=== PATIENT | female | born 1995 | race Caucasian/White ===

== ENCOUNTER 2018-08-19 13:55 | Emergency (ER) | payer MEDICAID ==
[~2018-08-19] VITALS: Ht 154.9 cm; Wt 86.4 kg
[2018-08-19 13:57] VITALS: TEMP 98.5
[2018-08-19] MEDS ORDERED: PRENATAL MVI PO (13:59)
[2018-08-19] MEDS ORDERED: OMEGA-3 1000 MG1 CAP PO (13:59)
[2018-08-19 14:28] LABS: COLLECTION METHOD CLEAN CATCH
[2018-08-19 14:33] LABS: PH 6 (5-8); SQUAMOUS EPITHELIAL 0-2 /hpf; URINE APPEARANCE Clear; URINE BACTERIA None Seen /hpf; URINE BILIRUBIN Negative (NEGATIVE); URINE BLOOD Negative (NEGATIVE); URINE COLOR Yellow; URINE GLUCOSE Negative (NEGATIVE); URINE KETONE Negative (NEGATIVE); URINE LEUKOCYTE ESTERASE Negative (NEGATIVE); URINE NITRATE Negative (NEGATIVE); URINE PROTEIN(semi-quant) Negative (NEGATIVE); URINE RBC 0-2 /hpf; URINE UROBILINOGEN Negative (NEGATIVE)
[2018-08-19 14:41] LABS: BASO % 0.2 % (0.0-2.0); EOS # 0.1 (0.0-0.7); EOS % 0.9 % (0-4.0); GRAN # 7.5 (1.4-6.5); GRAN % 72.2 % (42.2-75.2); HEMATOCRIT 37.9 % (37.0-47.0); HEMOGLOBIN 12.5 g/dl (12.5-16.0); LYMPH % 19.2 % (20.0-51.0); MEAN CELL VOLUME 90 fl (80.0-100.0); MEAN CORPUSCULAR HEMOGLOBIN 30 pg (27.0-31.0); MEAN CORPUSCULAR HGB CONC 33 g/dl (33.0-37.0); MEAN PLATELET VOLUME 10.2 fl (7.4-10.4); MONO # 0.7 (0.1-0.6); MONO % 7.1 % (1.7-9.3); PLATELET COUNT 278 K/mm3 (130-400); RED BLOOD COUNT 4.23 M/mm3 (4.10-5.30); REDCELL DISTRIBUTION WIDTH-CV 13.4 % (11.5-14.5)
[2018-08-19 14:53] LABS: ALBUMIN 3.7 gm/dL (3.5-5.0); BILIRUBIN,TOTAL 0.2 mg/dL (0.0-1.0); CALCIUM 9.8 mg/dL (8.4-10.2); CREATININE, serum 1.13 mg/dL (0.52-1.25); POTASSIUM 3.9 mmol/L (3.4-5.0); TOTAL PROTEIN 7.2 gm/dL (6.4-8.2)
[2018-08-19 16:40] VITALS: BP 119/74; PULSE 93
== END 2018-08-19 16:40 | disposition home or self-care (01) ==
LOC: COL.ER 13:55
PROVIDERS: Physician Assistant
DX: O26.892 Other specified pregnancy related conditions, second trimester (principal); R10.2 Pelvic and perineal pain; Z3A.17 17 weeks gestation of pregnancy; Z87.891 Personal history of nicotine dependence

== ENCOUNTER 2018-09-20 13:30 | Emergency (ER) | payer MEDICAID ==
[~2018-09-20] VITALS: Ht 154.9 cm; Wt 87.3 kg
[~2018-09-20 13:30] MED LIST: OMEGA-3 1000 MG1 CAP PO; PRENATAL MVI PO
[2018-09-20 13:33] VITALS: TEMP 98.4
[2018-09-20 14:16] LABS: BASO % 0.2 % (0.0-2.0); EOS # 0.1 (0.0-0.7); EOS % 0.9 % (0-4.0); GRAN # 7.5 (1.4-6.5); GRAN % 75.7 % (42.2-75.2); HEMATOCRIT 37.5 % (37.0-47.0); HEMOGLOBIN 12.3 g/dl (12.5-16.0); LYMPH # 1.7 (1.2-3.4); LYMPH % 16.7 % (20.0-51.0); MEAN CELL VOLUME 90 fl (80.0-100.0); MEAN CORPUSCULAR HEMOGLOBIN 29 pg (27.0-31.0); MEAN CORPUSCULAR HGB CONC 33 g/dl (33.0-37.0); MEAN PLATELET VOLUME 10.3 fl (7.4-10.4); MONO # 0.6 (0.1-0.6); PLATELET COUNT 264 K/mm3 (130-400); RED BLOOD COUNT 4.18 M/mm3 (4.10-5.30); REDCELL DISTRIBUTION WIDTH-CV 13.6 % (11.5-14.5)
[2018-09-20 14:20] LABS: ALANINE AMINOTRANSFERASE < 6 U/L (9-52); ALBUMIN 3.7 gm/dL (3.5-5.0); ALKALINE PHOSPHATASE 62 U/L (50-136); ANION GAP 8 mmol/L (7-16); AST,SGOT 15 U/L (15-37); BILIRUBIN,TOTAL 0.1 mg/dL (0.0-1.0); BLOOD UREA NITROGEN 5 mg/dL (7-17); CALCIUM 9.4 mg/dL (8.4-10.2); CARBON DIOXIDE 21 mmol/L (22-30); CHLORIDE 107 mmol/L (98-107); CREATININE, serum 0.44 (0.52-1.25); GLUCOSE 126 mg/dL (74-106); POTASSIUM 3.6 mmol/L (3.4-5.0); SODIUM 136 mmol/L (137-145); TOTAL PROTEIN 7.4 gm/dL (6.4-8.2)
[2018-09-20 14:31] LABS: TROPONIN-I < 0.012 ng/mL (0.000-0.035)
[2018-09-20 14:43] LABS: COLLECTION METHOD CLEAN CATCH
[2018-09-20 14:53] LABS: MUCOUS Present /lpf; PH 7 (5-8); URINE APPEARANCE Clear; URINE BACTERIA Rare /hpf; URINE BILIRUBIN Negative (NEGATIVE); URINE BLOOD Negative (NEGATIVE); URINE COLOR Yellow; URINE GLUCOSE Negative (NEGATIVE); URINE KETONE Negative (NEGATIVE); URINE LEUKOCYTE ESTERASE Negative (NEGATIVE); URINE NITRATE Negative (NEGATIVE); URINE PROTEIN(semi-quant) Negative (NEGATIVE); URINE RBC 0-2 /hpf; URINE UROBILINOGEN Negative (NEGATIVE)
[2018-09-20] MEDS ORDERED: ZOFRAN ODT4 MG PO (15:12)
[2018-09-20 15:30] VITALS: BP 104/44; PULSE 81
== END 2018-09-20 15:32 | disposition home or self-care (01) ==
LOC: COL.ER 13:30
PROVIDERS: Physician Assistant
DX: R07.89 Other chest pain (principal); R10.9 Unspecified abdominal pain

== ENCOUNTER 2018-10-09 15:04 | Emergency (ER) | payer MEDICAID ==
[~2018-10-09] VITALS: Ht 154.9 cm; Wt 90.9 kg
[~2018-10-09 15:04] MED LIST changes: +ZOFRAN ODT4 MG PO
[2018-10-09 15:14] VITALS: BP 117/74; PULSE 120; TEMP 97.6
== END 2018-10-09 16:05 | disposition left against medical advice (07) ==
LOC: COL.ER 15:04
DX: O21.9 Vomiting of pregnancy, unspecified (principal)

== ENCOUNTER 2018-10-13 15:44 | Outpatient (CLI) | payer MEDICAID ==
[~2018-10-13] VITALS: Ht 157.5 cm; Wt 89.5 kg
--- NOTE | 2018-10-13 16:00 | NUR ---
Pt arrives on unit via wheelchair. Pt states falling down the stairs on the right side of the abdomen while she was doing laundry. Denies vaginal bleeding, LOF, and regular ctx. Unsure of movement. N/V present throughout . Pt states, "I throw up so much the blood vessels in my face break. I can't sleep at night because of my headaches. I worry something is wrong with me that they aren't finding and I feel like I'm dying." Pt has hx of falling as a child. Dr. Akers updated on pt admission. See physician notification. Changed into clean gown. EFM and toco applied. VSS. Admission assessment completed. Pt updated on POC. Call light within reach. Bed locked in low position. Pt tearful.
[2018-10-13 16:23] LABS: COLLECTION METHOD CLEAN CATCH
[2018-10-13 16:27] LABS: BASO % 0.2 % (0.0-2.0); EOS # 0.1 (0.0-0.7); EOS % 0.9 % (0-4.0); GRAN % 77.2 % (42.2-75.2); HEMOGLOBIN 12.3 g/dl (12.5-16.0); LYMPH # 1.6 (1.2-3.4); MEAN CELL VOLUME 89 fl (80.0-100.0); MEAN CORPUSCULAR HEMOGLOBIN 30 pg (27.0-31.0); MEAN CORPUSCULAR HGB CONC 33 g/dl (33.0-37.0); MEAN PLATELET VOLUME 9.8 fl (7.4-10.4); MONO # 0.8 (0.1-0.6); PLATELET COUNT 286 K/mm3 (130-400); RED BLOOD COUNT 4.17 M/mm3 (4.10-5.30); REDCELL DISTRIBUTION WIDTH-CV 13.9 % (11.5-14.5)
--- NOTE | 2018-10-13 16:35 | NUR ---
This RN at bedside. Pt tearful. Discussed with pt anxiety and not being able to sleep at night. Pt planning on meeting with Ingrid at [facility]. Pt states wanting to feele better and will make appointment.
[2018-10-13 16:39] LABS: MUCOUS Present /lpf; PH 6 (5-8); URINE APPEARANCE Hazy; URINE BACTERIA Rare /hpf; URINE BILIRUBIN Negative (NEGATIVE); URINE BLOOD Negative (NEGATIVE); URINE COLOR Yellow; URINE GLUCOSE Negative (NEGATIVE); URINE KETONE Negative (NEGATIVE); URINE LEUKOCYTE ESTERASE 1+ (NEGATIVE); URINE NITRATE Negative (NEGATIVE); URINE PROTEIN(semi-quant) 1+ (NEGATIVE); URINE RBC 0-2 /hpf; URINE UROBILINOGEN Negative (NEGATIVE)
[2018-10-13 16:44] LABS: TRICYCLIC ANTIDEPRESS URINE NEGATIVE
[2018-10-13 16:47] LABS: ALANINE AMINOTRANSFERASE < 6 U/L (9-52); ALBUMIN 3.8 gm/dL (3.5-5.0); ALKALINE PHOSPHATASE 72 U/L (50-136); ANION GAP 11 mmol/L (7-16); AST,SGOT 17 U/L (15-37); BILIRUBIN,TOTAL 0.2 mg/dL (0.0-1.0); BLOOD UREA NITROGEN 4 mg/dL (7-17); CALCIUM 9.5 mg/dL (8.4-10.2); CARBON DIOXIDE 22 mmol/L (22-30); CHLORIDE 106 mmol/L (98-107); CREATININE, serum 0.45 (0.52-1.25); GLUCOSE 108 mg/dL (74-106); POTASSIUM 3.7 mmol/L (3.4-5.0); SODIUM 139 mmol/L (137-145); TOTAL PROTEIN 7.7 gm/dL (6.4-8.2)
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
[2018-10-13 16:51] VITALS: BP 122/78; PULSE 114; TEMP 98.5
--- NOTE | 2018-10-13 17:30 | NUR ---
Myra from Crisis Center contacted this RN. Myra updated on pt hx. Discussed safety plan. Pt states feeling safe to stay with FOB mother. Safety plan includes staying with FOB mother and following up with advocate. Pt agrees to plan of care. Needs voucher for discharge. housekeeper supervisor notified. Will be up to unit with transportation voucher.
--- NOTE | 2018-10-13 17:55 | NUR ---
Discharge instruction given. This RN recommended contacting [facility] Monday. Pt verbalizes understanding and agrees to POC. No questions or concerns at this time. Leaves unit ambulatory with this RN. Travel voucher given. Waiting in ER for transportation.
== END 2018-10-13 18:00 | disposition home or self-care (01) ==
LOC: LDRO 15:44
PROVIDERS: Obstetrics & Gynecology
DX: O9A.212 Injury, poisoning and certain other consequences of external causes complicating pregnancy, second trimester (principal); Z3A.24 24 weeks gestation of pregnancy

== ENCOUNTER 2018-10-24 14:31 | Emergency (ER) | payer MEDICAID ==
[~2018-10-24] VITALS: Ht 154.9 cm; Wt 90.9 kg
[2018-10-24 14:39] VITALS: TEMP 98.5
[2018-10-24 15:16] LABS: BASO % 0.2 % (0.0-2.0); EOS # 0.1 (0.0-0.7); GRAN # 9.1 (1.4-6.5); GRAN % 76.2 % (42.2-75.2); HEMATOCRIT 37.9 % (37.0-47.0); HEMOGLOBIN 12.5 g/dl (12.5-16.0); LYMPH # 1.7 (1.2-3.4); LYMPH % 14.2 % (20.0-51.0); MEAN CELL VOLUME 89 fl (80.0-100.0); MEAN CORPUSCULAR HEMOGLOBIN 29 pg (27.0-31.0); MEAN CORPUSCULAR HGB CONC 33 g/dl (33.0-37.0); MEAN PLATELET VOLUME 10.2 fl (7.4-10.4); MONO # 0.9 (0.1-0.6); MONO % 7.8 % (1.7-9.3); PLATELET COUNT 303 K/mm3 (130-400); RED BLOOD COUNT 4.25 M/mm3 (4.10-5.30)
[2018-10-24] MEDS ORDERED: ZANTAC 150MG T150 MG PO (15:30)
[2018-10-24 15:31] LABS: ALANINE AMINOTRANSFERASE < 6 U/L (9-52); ALBUMIN 3.9 gm/dL (3.5-5.0); ALKALINE PHOSPHATASE 82 U/L (50-136); ANION GAP 14 mmol/L (7-16); AST,SGOT 15 U/L (15-37); BILIRUBIN,TOTAL 0.2 mg/dL (0.0-1.0); BLOOD UREA NITROGEN 7 mg/dL (7-17); C-REACTIVE PROTEIN 1.3 mg/dL (0.0-0.9); CALCIUM 10.1 mg/dL (8.4-10.2); CARBON DIOXIDE 20 mmol/L (22-30); CHLORIDE 105 mmol/L (98-107); CREATININE, serum 0.45 (0.52-1.25); GLUCOSE 96 mg/dL (74-106); LIPASE 77 U/L (23-300); POTASSIUM 3.8 mmol/L (3.4-5.0); SODIUM 139 mmol/L (137-145); TOTAL PROTEIN 7.9 gm/dL (6.4-8.2)
[2018-10-24] MEDS ORDERED: CARAFATE 1GM1 G PO (16:14)
[2018-10-24] MEDS ORDERED: ZOFRAN ODT4 MG PO (16:14)
[2018-10-24 16:34] VITALS: BP 118/77; PULSE 101
== END 2018-10-24 16:34 | disposition home or self-care (01) ==
LOC: COL.ER 14:31
PROVIDERS: Emergency Medicine
DX: O99.612 Diseases of the digestive system complicating pregnancy, second trimester (principal); K29.70 Gastritis, unspecified, without bleeding; K21.9 Gastro-esophageal reflux disease without esophagitis; Z3A.26 26 weeks gestation of pregnancy
CPT/HCPCS: J7030

== ENCOUNTER 2018-10-26 18:33 | Emergency (ER) | payer MEDICAID ==
[~2018-10-26] VITALS: Ht 154.9 cm; Wt 90.9 kg
[~2018-10-26 18:33] MED LIST changes: +CARAFATE 1GM1 G PO; +ZANTAC 150MG T150 MG PO
[2018-10-26 18:47] VITALS: TEMP 98.6
--- NOTE | 2018-10-26 18:50 | NUR ---
1850 20 MINUTE FM STRIP RAN ON PT WITH BASELINE HR OF 120'S WITH GOOD VARIABILITY AND ACCELS WITH MOVEMENT
[2018-10-26 20:16] VITALS: BP 110/71; PULSE 104
== END 2018-10-26 20:16 | disposition home or self-care (01) ==
LOC: COL.ER 18:33
DX: O26.893 Other specified pregnancy related conditions, third trimester (principal); R51 Headache; F41.9 Anxiety disorder, unspecified; Z3A.26 26 weeks gestation of pregnancy

== ENCOUNTER 2018-11-09 13:56 | Emergency (ER) | payer MEDICAID ==
[~2018-11-09] VITALS: Ht 154.9 cm; Wt 91.1 kg
[2018-11-09 14:14] VITALS: PULSE 113; TEMP 97.5
[2018-11-09 15:54] LABS: BASO % 0.2 % (0.0-2.0); EOS # 0.1 (0.0-0.7); GRAN # 6.8 (1.4-6.5); GRAN % 74.4 % (42.2-75.2); HEMOGLOBIN 11.3 g/dl (12.5-16.0); LYMPH # 1.5 (1.2-3.4); LYMPH % 15.9 % (20.0-51.0); MEAN CELL VOLUME 88 fl (80.0-100.0); MEAN CORPUSCULAR HEMOGLOBIN 29 pg (27.0-31.0); MEAN CORPUSCULAR HGB CONC 33 g/dl (33.0-37.0); MEAN PLATELET VOLUME 9.9 fl (7.4-10.4); MONO # 0.7 (0.1-0.6); MONO % 7.8 % (1.7-9.3); PLATELET COUNT 257 K/mm3 (130-400); RED BLOOD COUNT 3.84 M/mm3 (4.10-5.30); REDCELL DISTRIBUTION WIDTH-CV 14.2 % (11.5-14.5)
[2018-11-09 16:05] LABS: ALANINE AMINOTRANSFERASE < 6 U/L (9-52); ALBUMIN 3.4 gm/dL (3.5-5.0); ALKALINE PHOSPHATASE 77 U/L (50-136); ANION GAP 10 mmol/L (7-16); AST,SGOT 15 U/L (15-37); BILIRUBIN,TOTAL 0.2 mg/dL (0.0-1.0); BLOOD UREA NITROGEN 7 mg/dL (7-17); CALCIUM 9.3 mg/dL (8.4-10.2); CARBON DIOXIDE 20 mmol/L (22-30); CHLORIDE 107 mmol/L (98-107); CREATININE, serum 0.52 (0.52-1.25); GLUCOSE 110 mg/dL (74-106); POTASSIUM 3.5 mmol/L (3.4-5.0); SODIUM 137 mmol/L (137-145); TOTAL PROTEIN 7.2 gm/dL (6.4-8.2)
[2018-11-09 16:16] LABS: HEMATOCRIT 33.8 % (37.0-47.0)
[2018-11-09 16:57] VITALS: BP 97/52
== END 2018-11-09 16:57 | disposition home or self-care (01) ==
LOC: COL.ER 13:56
PROVIDERS: Emergency Medicine
DX: O26.893 Other specified pregnancy related conditions, third trimester (principal); R51 Headache; Z3A.28 28 weeks gestation of pregnancy; Z86.69 Personal history of other diseases of the nervous system and sense organs

== ENCOUNTER 2018-11-22 19:32 | Emergency (ER) | payer MEDICAID ==
[~2018-11-22] VITALS: Ht 154.9 cm; Wt 90.9 kg
[2018-11-22 19:33] VITALS: TEMP 98.4
[2018-11-22 20:14] LABS: ALANINE AMINOTRANSFERASE < 6 U/L (9-52); ALBUMIN 3.6 gm/dL (3.5-5.0); ALKALINE PHOSPHATASE 88 U/L (50-136); ANION GAP 12 mmol/L (7-16); AST,SGOT 15 U/L (15-37); BASO % 0.3 % (0.0-2.0); BILIRUBIN,TOTAL 0.2 mg/dL (0.0-1.0); BLOOD UREA NITROGEN 7 mg/dL (7-17); CALCIUM 9.8 mg/dL (8.4-10.2); CARBON DIOXIDE 20 mmol/L (22-30); CHLORIDE 105 mmol/L (98-107); CREATININE, serum 0.65 (0.52-1.25); EOS # 0.1 (0.0-0.7); EOS % 0.9 % (0-4.0); GLUCOSE 119 mg/dL (74-106); GRAN % 74.1 % (42.2-75.2); HEMOGLOBIN 11.8 g/dl (12.5-16.0); LYMPH % 16.4 % (20.0-51.0); MEAN CELL VOLUME 88 fl (80.0-100.0); MEAN CORPUSCULAR HEMOGLOBIN 29 pg (27.0-31.0); MEAN CORPUSCULAR HGB CONC 33 g/dl (33.0-37.0); MEAN PLATELET VOLUME 10.3 fl (7.4-10.4); MONO # 0.9 (0.1-0.6); MONO % 7.6 % (1.7-9.3); PLATELET COUNT 307 K/mm3 (130-400); POTASSIUM 3.8 mmol/L (3.4-5.0); RED BLOOD COUNT 4.08 M/mm3 (4.10-5.30); REDCELL DISTRIBUTION WIDTH-CV 14.4 % (11.5-14.5); SODIUM 137 mmol/L (137-145); TOTAL PROTEIN 7.5 gm/dL (6.4-8.2)
[2018-11-22 20:15] LABS: HEMATOCRIT 35.8 % (37.0-47.0)
--- NOTE | 2018-11-22 20:35 | NUR ---
Pt seen in the ED for complaints of blood in her stool. Pt 30 weeks gestation pt of Dr. Akers. Pt denies any contactions, leaking of fluid or vaginal bleeding at this time. EFM and toco monitos started per order. Audible movement. No contractions per toco, palpation and/or pt report. See heart rate charting for details.
[2018-11-22 20:39] LABS: COLLECTION METHOD CLEAN CATCH
[2018-11-22 20:47] LABS: PH 6 (5-8); SQUAMOUS EPITHELIAL 0-2 /hpf; URINE APPEARANCE Clear; URINE BACTERIA None Seen /hpf; URINE BILIRUBIN Negative (NEGATIVE); URINE BLOOD Negative (NEGATIVE); URINE COLOR Straw; URINE GLUCOSE Negative (NEGATIVE); URINE KETONE Negative (NEGATIVE); URINE LEUKOCYTE ESTERASE Negative (NEGATIVE); URINE NITRATE Negative (NEGATIVE); URINE PROTEIN(semi-quant) Negative (NEGATIVE); URINE RBC 0-2 /hpf; URINE UROBILINOGEN Negative (NEGATIVE)
[2018-11-22] MEDS ORDERED: ANUSOL-HC SUPPO25 MG RC (20:56)
[2018-11-22 21:20] VITALS: BP 108/79; PULSE 116
== END 2018-11-22 21:25 | disposition home or self-care (01) ==
LOC: COL.ER 19:32
PROVIDERS: Emergency Medicine
DX: K64.8 Other hemorrhoids (principal)
CPT/HCPCS: J7030

== ENCOUNTER → 2018-12-11 | Outpatient (CLI) | payer MEDICAID ==
[~2018-12-11] MED LIST changes: +ANUSOL-HC SUPPO25 MG RC
== END ==
LOC: ZCOL.LAB 16:20
DX: N89.8 Other specified noninflammatory disorders of vagina (principal)

== ENCOUNTER → 2018-12-18 | Outpatient (CLI) | payer MEDICAID ==
[2018-12-18 18:11] LABS: HIV 1/2 Antibodies Non-Reactive; HIV-1p24 Antigen Non-Reactive
[2018-12-19 18:25] LABS: HEPATITIS C VIRUS ANTIBODY Negative (Negative)
[2018-12-20 08:14] LABS: RPR (VDRL) XXX
== END ==
LOC: ZCOL.LAB 16:11
PROVIDERS: Family Medicine
DX: Z11.4 Encounter for screening for human immunodeficiency virus [HIV] (principal); Z11.3 Encounter for screening for infections with a predominantly sexual mode of transmission; Z11.59 Encounter for screening for other viral diseases

== ENCOUNTER 2019-01-27 07:06 | Inpatient (IN) | payer MEDICARE, MEDICAID ==
[~2019-01-27] VITALS: Ht 157.5 cm; Wt 99.1 kg
[2019-01-29] VITALS (8 sets, daily range): BP systolic 99–138; BP diastolic 51–93; PULSE 86–114; TEMP 98.5
--- NOTE | 2019-01-29 19:20 | NUR ---
G1L0. 40-0. Ambulatory to LDR 6 with family for scheduled cytotec induction. Pt very anxious for induction. EFM and TOCO explained and applied. Plan of care explained and questions answered. Pt denies contractions, LOF or vaginal bleeding. Reports good movement. VS taken. 1939: IV started and labs obtained via IV site. LR bolus infusing without difficulties. 2005: SVE /-3. 2006: Cytotec explained and administered PO per orders. Plan of care explained to pt and family who verbalize understanding. Call light within reach.
[2019-01-29] MEDS ORDERED: ZOVIRAX400 MG PO (19:47)
[2019-01-29 21:17] LABS: BASO % 0.3 % (0.0-2.0); EOS # 0.1 (0.0-0.7); EOS % 0.9 % (0-4.0); GRAN # 8.4 (1.4-6.5); GRAN % 73.7 % (42.2-75.2); HEMOGLOBIN 11.4 g/dl (12.5-16.0); LYMPH # 1.8 (1.2-3.4); LYMPH % 15.6 % (20.0-51.0); MEAN CELL VOLUME 86 fl (80.0-100.0); MEAN CORPUSCULAR HEMOGLOBIN 27 pg (27.0-31.0); MEAN CORPUSCULAR HGB CONC 32 g/dl (33.0-37.0); MEAN PLATELET VOLUME 10.5 fl (7.4-10.4); PLATELET COUNT 284 K/mm3 (130-400); RED BLOOD COUNT 4.19 M/mm3 (4.10-5.30); REDCELL DISTRIBUTION WIDTH-CV 16.6 % (11.5-14.5)
[2019-01-30] VITALS (77 sets, daily range): BP systolic 90–164; BP diastolic 50–97; PULSE 63–153; TEMP 97.4–98.3
--- NOTE | 2019-01-30 00:13 | NUR ---
FHR strip reactive. Plan of care explained to pt and significant other. Cytotec 25mcg PO administered per orders. Call light within reach.
--- NOTE | 2019-01-30 04:52 | NUR ---
FHR strip reactive. Pt up to shower before starting pitocin. Plan of care explained to pt who verbalizes undersanding. Call light within reach.
--- NOTE | 2019-01-30 05:20 | NUR ---
Monitors reapplied. Pt reports mild cramping. Plan of care explained. 0545: FHR strip reactive. SVE /-3. Pitocin and Luis Eduardo explained and started at this time. Call light within reach.
--- NOTE | 2019-01-30 08:20 | NUR ---
Difficulty tracing FHR. Monitor tracing FHR intermittently. FHR monitor adjusted. 0855: Dr. Akers at bedside and assessing patient FHR strip. SVE-2/70/-1 and AROM at this time with meconium fluid noted. Plan of care discussed. Patient requesting epidural and L.Cuca CHEF MANAGER called and notified.
--- NOTE | 2019-01-30 09:30 | NUR ---
Patient off monitor to void. 0935: Patient back on monitor. Difficulty tracing FHR and monitor being adjusted. 0943: Patient sat up on edge of bed and Catherine VINES at bedside for placement of epidural. Patient very anxious and crying at this time. Patients mother comforting patient. 0953: Test dose given and patient tolerates well. 1001: Patient repositioned and precaustions/risks gone over. Patient still anxious.
--- NOTE | 2019-01-30 13:05 | NUR ---
Dr Akers at bedside and assessing patient and FHR strip. SVE per physician and placed an IUPC at this time and patient tolerates well. Plan of care discussed. Dr. Akers orders to increase pitocin to 30Mu as needed to achieve regular pattern. 1325: Patient turns left lateral and FHR difficult to trace and monitor adjusted. 1345: Patient turns right and FHR difficult to trace and monitor adjusted.
--- NOTE | 2019-01-30 15:40 | NUR ---
at nurses station and updated on patient and FHR strip. No new orders at this time.
--- NOTE | 2019-01-30 16:10 | NUR ---
IUPC baseline pressure offscale and difficult to measure intensity at this time. Monitor/IUPC zeroed out and adjusted.
--- NOTE | 2019-01-30 17:00 | NUR ---
Dr. Akers at nurses station evaluating FHR strip and order for SVE 1700- SVE-3-//- and Dr. Akers updated. 1800: at bedside and assessing patient/FHR strip. SVE--/ and Dr. Akers discusses the option of . Patient agrees to procedure and very anxious. Dr. Akers discusses plan of care and risks of procedure and patient agrees/understands. 1815: Brigida RN assumes care of patient and bedside report given.
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
[2019-01-31] VITALS (7 sets, daily range): BP systolic 118–126; BP diastolic 60–74; PULSE 80–103; TEMP 97.9–99
[2019-01-31 07:17] LABS: HEMOGLOBIN 10.6 g/dl (12.5-16.0)
[2019-01-31 07:19] LABS: HEMATOCRIT 34.2 % (37.0-47.0)
[2019-01-31] MEDS ORDERED: IBU600 MG PO (08:44)
[2019-01-31] MEDS ORDERED: PERCOCET 325 MG1 TA2 PO (08:45)
--- NOTE | 2019-02-01 01:45 | NUR ---
PT CALLS RN TO ROOM - STATES SHE FEELS HER ANXIETY IS VERY HIGH-SHE WANTS HER B/P TAKEN AGAIN-RN OFFERS PAIN MED. PT DENIES WANTING- PT IS WRINGING HER HANDS AND STATING SHE IS SO ANXIOUS. RN ASKS WHAT I CAN DO FOR HER TO HELP. PT STATES NOTHING- PT. BOYFRIEND IS IN THE ROOM. RN OFFERS TO TAKE BABY TO THE NS[place]. MOM AGREES. PT STATES SHE HAS AN APPOINTMENT WITH TO GET BACK ON MEDS FOR HER ANXIETY.
[2019-02-01 03:02] VITALS: BP 128/65
[2019-02-01 08:30] VITALS: BP 130/78; PULSE 101; TEMP 98.1
--- NOTE | 2019-02-01 15:00 | NUR ---
1500- This RN at bedside. Discharge paperwork given and explained. Prescription given. Pt denies questions. placed in carseat by this RN. Straps adjusted and explained. Pt and spouse verbalizes understanding. 1515- Pt escorted off unit with spouse and baby by this RN. 1525- Cab arrives, placed in van rear-facing by FOB.
== END 2019-02-01 15:25 | disposition home or self-care (01) | DRG 787 ==
LOC: LDR 01-29 07:05 → OB 01-29 19:14 → LDR 01-29 19:14 → OB 01-30 22:58
PROVIDERS: ADMIT Obstetrics & Gynecology
PROC: 10D00Z1 Extraction of Products of Conception, Low, Open Approach (ICD-10-PCS; principal; 2019-01-29)
DX: O99.824 Streptococcus B carrier state complicating childbirth (principal); O98.52 Other viral diseases complicating childbirth; Z3A.40 40 weeks gestation of pregnancy; O99.344 Other mental disorders complicating childbirth; F41.8 Other specified anxiety disorders; Z37.0 Single live birth; B00.9 Herpesviral infection, unspecified; O76 Abnormality in fetal heart rate and rhythm complicating labor and delivery; O77.0 Labor and delivery complicated by meconium in amniotic fluid
CPT/HCPCS: J0690; J1885; J2370; J2405; J2540; J2590; J7120

== ENCOUNTER 2019-02-27 22:39 | Emergency (ER) | payer MEDICARE, MEDICAID ==
[~2019-02-27] VITALS: Ht 154.9 cm; Wt 92.7 kg
[~2019-02-27 22:39] MED LIST changes: +IBU600 MG PO; +PERCOCET 325 MG1 TA2 PO; +ZOVIRAX400 MG PO
[2019-02-27 22:52] VITALS: BP 134/86; TEMP 98.4
[2019-02-27 23:45] LABS: COLLECTION METHOD CLEAN CATCH
[2019-02-27 23:50] LABS: MUCOUS Present /lpf; PH 5 (5-8); SQUAMOUS EPITHELIAL 0-2 /hpf; URINE APPEARANCE Clear; URINE BACTERIA None Seen /hpf; URINE BILIRUBIN Negative (NEGATIVE); URINE BLOOD Negative (NEGATIVE); URINE COLOR Yellow; URINE GLUCOSE Negative (NEGATIVE); URINE KETONE Negative (NEGATIVE); URINE LEUKOCYTE ESTERASE Negative (NEGATIVE); URINE NITRATE Negative (NEGATIVE); URINE PROTEIN(semi-quant) Negative (NEGATIVE); URINE RBC 0-2 /hpf; URINE UROBILINOGEN Negative (NEGATIVE); URINE WBC 0-2 /hpf
[2019-02-28 00:21] LABS: BASO % 0.3 % (0.0-2.0); EOS # 0.3 (0.0-0.7); EOS % 3.8 % (0-4.0); GRAN # 3.7 (1.4-6.5); GRAN % 55.9 % (42.2-75.2); HEMATOCRIT 37.4 % (37.0-47.0); LYMPH # 2.1 (1.2-3.4); LYMPH % 31.4 % (20.0-51.0); MEAN CELL VOLUME 85 fl (80.0-100.0); MEAN CORPUSCULAR HEMOGLOBIN 27 pg (27.0-31.0); MEAN CORPUSCULAR HGB CONC 32 g/dl (33.0-37.0); MEAN PLATELET VOLUME 9.8 fl (7.4-10.4); MONO # 0.6 (0.1-0.6); MONO % 8.3 % (1.7-9.3); PLATELET COUNT 265 K/mm3 (130-400); RED BLOOD COUNT 4.41 M/mm3 (4.10-5.30); REDCELL DISTRIBUTION WIDTH-CV 15.7 % (11.5-14.5)
[2019-02-28 00:28] LABS: ALBUMIN 4.2 gm/dL (3.5-5.0); BILIRUBIN,TOTAL 0.1 mg/dL (0.0-1.0); C-REACTIVE PROTEIN 0.6 mg/dL (0.0-0.9); CALCIUM 8.9 mg/dL (8.4-10.2); CREATININE, serum 0.69 (0.52-1.25); POTASSIUM 3.7 mmol/L (3.4-5.0); TOTAL PROTEIN 7.8 gm/dL (6.4-8.2)
[2019-02-28] MEDS ORDERED: ZOFRAN 4MG T4 MG/TAB PO (01:16)
[2019-02-28 01:44] VITALS: PULSE 63
== END 2019-02-28 01:44 | disposition home or self-care (01) ==
LOC: COL.ER 22:39
PROVIDERS: Emergency Medicine
DX: R19.7 Diarrhea, unspecified (principal); R11.2 Nausea with vomiting, unspecified; R10.32 Left lower quadrant pain; E78.5 Hyperlipidemia, unspecified; Z87.891 Personal history of nicotine dependence

== ENCOUNTER 2019-03-22 13:38 | Emergency (ER) | payer MEDICARE, MEDICAID ==
[~2019-03-22] VITALS: Ht 154.9 cm; Wt 94.1 kg
[~2019-03-22 13:38] MED LIST changes: +ZOFRAN 4MG T4 MG/TAB PO
[2019-03-22 14:05] VITALS: BP 118/82; PULSE 58; TEMP 97.1
[2019-03-22 14:32] LABS: COLLECTION METHOD CLEAN CATCH
[2019-03-22 14:44] LABS: PH 5 (5-8); SQUAMOUS EPITHELIAL 0-2 /hpf; URINE APPEARANCE Clear; URINE BACTERIA None Seen /hpf; URINE BILIRUBIN Negative (NEGATIVE); URINE BLOOD Negative (NEGATIVE); URINE COLOR Straw; URINE GLUCOSE Negative (NEGATIVE); URINE KETONE Negative (NEGATIVE); URINE LEUKOCYTE ESTERASE Negative (NEGATIVE); URINE NITRATE Negative (NEGATIVE); URINE PROTEIN(semi-quant) Negative (NEGATIVE); URINE RBC None Seen /hpf; URINE UROBILINOGEN Negative (NEGATIVE)
== END 2019-03-22 15:20 | disposition left against medical advice (07) ==
LOC: COL.ER 13:38
PROVIDERS: Physician Assistant
DX: R10.11 Right upper quadrant pain (principal); E78.5 Hyperlipidemia, unspecified; Z87.891 Personal history of nicotine dependence; Z98.890 Other specified postprocedural states

== ENCOUNTER 2019-04-16 13:09 | Emergency (ER) | payer MEDICARE, MEDICAID ==
[~2019-04-16] VITALS: Ht 154.9 cm; Wt 94.1 kg
[2019-04-16 13:17] VITALS: BP 131/93; TEMP 98
[2019-04-16 15:21] VITALS: PULSE 74
== END 2019-04-16 15:20 | disposition home or self-care (01) ==
LOC: COL.ER 13:09
DX: R51 Headache (principal); E78.5 Hyperlipidemia, unspecified; Z98.890 Other specified postprocedural states

== ENCOUNTER → 2019-06-25 | Outpatient (CLI) | payer MEDICARE, MEDICAID | LOC: COL.RAD 08:02 | DX: K76.0 Fatty (change of) liver, not elsewhere classified (principal) ==

== ENCOUNTER → 2019-08-14 | Outpatient (CLI) | payer MEDICARE, MEDICAID | LOC: COL.RAD 07-29 14:00 | DX: R20.9 Unspecified disturbances of skin sensation (principal); R51 Headache ==

== ENCOUNTER 2019-08-25 20:12 | Emergency (ER) | payer MEDICARE, MEDICAID ==
[~2019-08-25] VITALS: Ht 154.9 cm; Wt 127.3 kg
[~2019-08-25 20:12] MED LIST changes: +NORCO 325 MG-51 TAB PO
[2019-08-25 20:21] VITALS: TEMP 98.7
[2019-08-25 20:59] LABS: ALBUMIN 4.4 gm/dL (3.5-5.0); BASO % 0.3 % (0.0-2.0); BILIRUBIN,TOTAL 0.3 mg/dL (0.0-1.0); CALCIUM 9.3 mg/dL (8.4-10.2); CREATININE, serum 0.51 (0.52-1.25); EOS # 0.1 (0.0-0.7); EOS % 1.1 % (0-4.0); GRAN # 7.9 (1.4-6.5); GRAN % 75.4 % (42.2-75.2); HEMATOCRIT 43.7 % (37.0-47.0); HEMOGLOBIN 14.2 g/dl (12.5-16.0); LYMPH # 1.9 (1.2-3.4); LYMPH % 18.3 % (20.0-51.0); MEAN CELL VOLUME 86 fl (80.0-100.0); MEAN CORPUSCULAR HEMOGLOBIN 28 pg (27.0-31.0); MEAN CORPUSCULAR HGB CONC 33 g/dl (33.0-37.0); MEAN PLATELET VOLUME 10.2 fl (7.4-10.4); MONO # 0.5 (0.1-0.6); MONO % 4.6 % (1.7-9.3); PLATELET COUNT 286 K/mm3 (130-400); POTASSIUM 3.7 mmol/L (3.4-5.0); RED BLOOD COUNT 5.07 M/mm3 (4.10-5.30); REDCELL DISTRIBUTION WIDTH-CV 14.3 % (11.5-14.5); TOTAL PROTEIN 8.3 gm/dL (6.4-8.2)
[2019-08-25 22:00] VITALS: PULSE 84
[2019-08-25] MEDS ORDERED: ZOFRAN 4MG T4 MG/TAB PO (22:02)
== END 2019-08-25 22:13 | disposition home or self-care (01) ==
LOC: COL.ER 20:12
PROVIDERS: Emergency Medicine
DX: K91.86 Retained cholelithiasis following cholecystectomy (principal); E66.9 Obesity, unspecified; Z88.8 Allergy status to other drugs, medicaments and biological substances
CPT/HCPCS: J7030

== ENCOUNTER 2020-06-09 16:11 | Emergency (ER) | payer MEDICARE, MEDICAID ==
[~2020-06-09] VITALS: Ht 154.9 cm; Wt 97.7 kg
[2020-06-09 16:35] VITALS: TEMP 98.4
[2020-06-09 17:29] LABS: BASO % 0.6 % (0.0-2.0); EOS # 0.1 (0.0-0.7); EOS % 1.5 % (0-4.0); GRAN # 4.3 (1.4-6.5); GRAN % 59.6 % (42.2-75.2); HEMATOCRIT 44.2 % (37.0-47.0); HEMOGLOBIN 14.8 g/dl (12.5-16.0); LYMPH # 2.2 (1.2-3.4); MEAN CELL VOLUME 87 fl (80.0-100.0); MEAN CORPUSCULAR HEMOGLOBIN 29 pg (27.0-31.0); MEAN CORPUSCULAR HGB CONC 34 g/dl (33.0-37.0); MEAN PLATELET VOLUME 10.4 fl (7.4-10.4); MONO # 0.6 (0.1-0.6); PLATELET COUNT 293 K/mm3 (130-400); RED BLOOD COUNT 5.08 M/mm3 (4.10-5.30); REDCELL DISTRIBUTION WIDTH-CV 13.4 % (11.5-14.5)
[2020-06-09 17:37] LABS: ALANINE AMINOTRANSFERASE 72 U/L (4-34); ALBUMIN 4.6 gm/dL (3.5-5.0); ALKALINE PHOSPHATASE 82 U/L (50-136); ANION GAP 11 mmol/L (7-16); AST,SGOT 48 U/L (15-37); BILIRUBIN,TOTAL 0.5 mg/dL (0.0-1.0); BLOOD UREA NITROGEN 7 mg/dL (7-17); C-REACTIVE PROTEIN 0.6 mg/dL (0.0-0.9); CALCIUM 9.5 mg/dL (8.4-10.2); CARBON DIOXIDE 25 mmol/L (22-30); CHLORIDE 104 mmol/L (98-107); CREATININE, serum 0.57 (0.52-1.25); GLUCOSE 102 mg/dL (74-106); LIPASE 66 U/L (23-300); POTASSIUM 3.9 mmol/L (3.4-5.0); SODIUM 140 mmol/L (137-145); TOTAL PROTEIN 8.7 gm/dL (6.4-8.2)
[2020-06-09 17:51] LABS: TROPONIN-I < 0.012 ng/mL (0.000-0.035)
[2020-06-09 19:43] VITALS: BP 128/86; PULSE 84
== END 2020-06-09 19:43 | disposition home or self-care (01) ==
LOC: COL.ER 16:11
PROVIDERS: Nurse Practitioner
DX: R07.9 Chest pain, unspecified (principal); Z88.8 Allergy status to other drugs, medicaments and biological substances; Z87.891 Personal history of nicotine dependence
CPT/HCPCS: J7030

== ENCOUNTER 2020-10-05 14:08 | Emergency (ER) | payer MEDICARE, MEDICAID ==
[~2020-10-05] VITALS: Ht 154.9 cm; Wt 100.0 kg
[2020-10-05 14:34] VITALS: TEMP 99
[2020-10-05 14:58] LABS: BASO % 0.1 % (0.0-2.0); EOS % 0.4 % (0-4.0); GRAN # 5.6 (1.4-6.5); GRAN % 81.1 % (42.2-75.2); HEMATOCRIT 43.8 % (37.0-47.0); HEMOGLOBIN 14.8 g/dl (12.5-16.0); LYMPH # 0.9 (1.2-3.4); LYMPH % 12.8 % (20.0-51.0); MEAN CELL VOLUME 86 fl (80.0-100.0); MEAN CORPUSCULAR HEMOGLOBIN 29 pg (27.0-31.0); MEAN CORPUSCULAR HGB CONC 34 g/dl (33.0-37.0); MEAN PLATELET VOLUME 9.8 fl (7.4-10.4); MONO # 0.4 (0.1-0.6); MONO % 5.5 % (1.7-9.3); PLATELET COUNT 232 K/mm3 (130-400); REDCELL DISTRIBUTION WIDTH-CV 13.5 % (11.5-14.5)
[2020-10-05 15:05] LABS: ALBUMIN 4.4 gm/dL (3.5-5.0); BILIRUBIN,TOTAL 0.6 mg/dL (0.0-1.0); CALCIUM 9.1 mg/dL (8.4-10.2); CREATININE, serum 0.54 (0.52-1.25); POTASSIUM 3.3 mmol/L (3.4-5.0); TOTAL PROTEIN 8.8 gm/dL (6.4-8.2)
[2020-10-05 15:20] LABS: C-REACTIVE PROTEIN 1.7 mg/dL (0.0-0.9)
[2020-10-05 15:20] LABS: COLLECTION METHOD CLEAN CATCH
[2020-10-05 15:34] LABS: MUCOUS Present /lpf; PH 5 (5-8); SQUAMOUS EPITHELIAL 0-2 /hpf; URINE APPEARANCE Clear; URINE BACTERIA None Seen /hpf; URINE BILIRUBIN Negative (NEGATIVE); URINE BLOOD Negative (NEGATIVE); URINE COLOR Yellow; URINE GLUCOSE Negative (NEGATIVE); URINE KETONE Negative (NEGATIVE); URINE LEUKOCYTE ESTERASE Negative (NEGATIVE); URINE NITRATE Negative (NEGATIVE); URINE PROTEIN(semi-quant) Negative (NEGATIVE); URINE RBC None Seen /hpf; URINE UROBILINOGEN Negative (NEGATIVE)
[2020-10-05] MEDS ORDERED: ZOFRAN ODT4 MG PO (17:25)
[2020-10-05] MEDS ORDERED: NORCO 325 MG-51 TAB PO (17:25)
[2020-10-05 17:50] VITALS: BP 128/68; PULSE 88
[2021-01-22] MEDS ORDERED: XANAX 1MG1 MG PO (11:14)
[2021-01-22] MEDS ORDERED: LEXAPRO 10MG10 MG PO (11:14)
== END 2020-10-05 17:58 | disposition home or self-care (01) ==
LOC: COL.ER 14:08
PROVIDERS: Nurse Practitioner
DX: R10.11 Right upper quadrant pain (principal); Z32.02 Encounter for pregnancy test, result negative; Z88.1 Allergy status to other antibiotic agents
CPT/HCPCS: J1885; J2405; J7030; Q9967

== ENCOUNTER 2021-01-09 15:02 | Emergency (ER) | payer MEDICARE, MEDICAID ==
[~2021-01-09] VITALS: Ht 154.9 cm; Wt 94.5 kg
[2021-01-09 15:34] VITALS: BP 139/96; PULSE 70; TEMP 98.4
[2021-01-09] MEDS ORDERED: SYNTHROID0.05 MG/TA PO (15:34)
[2021-01-09] MEDS ORDERED: FLEXERIL 1010 MG/TAB PO (16:06)
[2021-01-22] MEDS ORDERED: XANAX 1MG1 MG PO (11:14)
[2021-01-22] MEDS ORDERED: LEXAPRO 10MG10 MG PO (11:14)
== END 2021-01-09 16:30 | disposition home or self-care (01) ==
LOC: COL.ER 15:02
DX: M54.2 Cervicalgia (principal); E03.9 Hypothyroidism, unspecified; Z79.890 Hormone replacement therapy

== ENCOUNTER 2021-05-19 17:46 | Emergency (ER) | payer MEDICARE, MEDICAID ==
[~2021-05-19] VITALS: Ht 154.9 cm; Wt 91.8 kg
[~2021-05-19 17:46] MED LIST changes: +FLEXERIL 1010 MG/TAB PO; +LEXAPRO 10MG10 MG PO; +SYNTHROID0.05 MG/TA PO; +XANAX 1MG1 MG PO
[2021-05-19 18:27] LABS: BASO % 0.4 % (0.0-2.0); EOS # 0.1 K/mm3 (0.0-0.7); EOS % 1.3 % (0.0-4.0); GRAN # 5.5 K/mm3 (1.4-6.5); GRAN % 66.1 % (42.2-75.2); HEMOGLOBIN 14.2 g/dl (12.5-16.0); LYMPH # 2.2 K/mm3 (1.2-3.4); LYMPH % 26.5 % (20.0-51.0); MEAN CELL VOLUME 87 fl (80.0-100.0); MEAN CORPUSCULAR HEMOGLOBIN 29 pg (27-31); MEAN CORPUSCULAR HGB CONC 34 g/dl (33.0-37.0); MEAN PLATELET VOLUME 9.9 fl (7.4-10.4); MONO # 0.5 K/mm3 (0.1-0.6); MONO % 5.5 % (1.7-9.3); PLATELET COUNT 276 K/mm3 (130-400); RED BLOOD COUNT 4.85 M/mm3 (4.10-5.30); REDCELL DISTRIBUTION WIDTH-CV 13.2 % (11.5-14.5)
[2021-05-19 18:45] LABS: ALANINE AMINOTRANSFERASE 31 U/L (0-55); ALBUMIN 4.1 gm/dL (3.5-5.0); ALKALINE PHOSPHATASE 77 U/L (40-150); ANION GAP 12 mmol/L (7-16); AST,SGOT 20 U/L (5-34); BILIRUBIN,TOTAL 0.2 mg/dL (0.2-1.2); BLOOD UREA NITROGEN 10 mg/dL (7-19); CALCIUM 9.2 mg/dL (8.4-10.2); CARBON DIOXIDE 22 mmol/L (22-29); CHLORIDE 105 mmol/L (98-107); CREATININE, serum 0.72 mg/dL (0.57-1.11); GLUCOSE 138 mg/dL (70-99); POTASSIUM 3.5 mmol/L (3.5-4.5); SODIUM 139 mmol/L (136-145); TOTAL PROTEIN 8.4 gm/dL (6.2-8.1)
[2021-05-19 18:51] LABS: TROPONIN-I < 0.010 ng/mL (0.00-0.033)
[2021-05-19] MEDS ORDERED: PRIL40 PO (19:11)
[2021-05-19 19:26] VITALS: BP 112/84; PULSE 87; TEMP 98.7
== END 2021-05-19 19:26 | disposition home or self-care (01) ==
LOC: COL.ER 17:46
PROVIDERS: Physician Assistant
DX: K29.70 Gastritis, unspecified, without bleeding (principal); E03.9 Hypothyroidism, unspecified; E66.9 Obesity, unspecified; Z79.899 Other long term (current) drug therapy; Z79.890 Hormone replacement therapy

== ENCOUNTER 2022-01-03 12:19 | Emergency (ER) | payer MEDICARE, MEDICAID ==
[~2022-01-03] VITALS: Ht 154.9 cm; Wt 90.9 kg
[~2022-01-03 12:19] MED LIST changes: +PRIL40 PO
[2022-01-03 12:27] VITALS: TEMP 98
[2022-01-03 12:48] LABS: BASO % 0.7 % (0.0-2.0); EOS # 0.1 K/mm3 (0.0-0.7); EOS % 2.1 % (0.0-4.0); GRAN # 3.5 K/mm3 (1.4-6.5); GRAN % 56.7 % (42.2-75.2); HEMATOCRIT 41.6 % (37.0-47.0); HEMOGLOBIN 14.3 g/dl (12.5-16.0); MEAN CELL VOLUME 85 fl (80.0-100.0); MEAN CORPUSCULAR HEMOGLOBIN 29 pg (27-31); MEAN CORPUSCULAR HGB CONC 34 g/dl (33.0-37.0); MONO # 0.5 K/mm3 (0.1-0.6); MONO % 8.2 % (1.7-9.3); PLATELET COUNT 262 K/mm3 (130-400); RED BLOOD COUNT 4.88 M/mm3 (4.10-5.30); REDCELL DISTRIBUTION WIDTH-CV 13.1 % (11.5-14.5)
[2022-01-03 13:07] LABS: ALANINE AMINOTRANSFERASE 32 U/L (0-55); ALBUMIN 3.8 gm/dL (3.5-5.0); ALKALINE PHOSPHATASE 63 U/L (40-150); ANION GAP 12 mmol/L (7-16); AST,SGOT 19 U/L (5-34); BILIRUBIN,TOTAL 0.5 mg/dL (0.2-1.2); BLOOD UREA NITROGEN 9 mg/dL (7-19); CALCIUM 9.5 mg/dL (8.4-10.2); CARBON DIOXIDE 21 mmol/L (22-29); CHLORIDE 107 mmol/L (98-107); GLUCOSE 108 mg/dL (70-99); POTASSIUM 3.3 mmol/L (3.5-4.5); SODIUM 140 mmol/L (136-145)
[2022-01-03 13:19] LABS: TROPONIN-I < 0.010 ng/mL (0.00-0.033)
[2022-01-03 13:48] VITALS: BP 127/82; PULSE 70
== END 2022-01-03 13:50 | disposition home or self-care (01) ==
LOC: COL.ER 12:19
PROVIDERS: Nurse Practitioner
DX: F41.8 Other specified anxiety disorders (principal); E66.9 Obesity, unspecified; Z68.37 Body mass index [BMI] 37.0-37.9, adult; Z28.310 Unvaccinated for COVID-19

== ENCOUNTER 2022-01-12 18:31 | Emergency (ER) | payer MEDICARE, MEDICAID ==
[~2022-01-12] VITALS: Ht 154.9 cm; Wt 93.2 kg
[2022-01-12 18:48] VITALS: TEMP 98.7
[2022-01-12 19:53] LABS: BASO % 0.2 % (0.0-2.0); EOS # 0.1 K/mm3 (0.0-0.7); EOS % 1.3 % (0.0-4.0); GRAN # 5.6 K/mm3 (1.4-6.5); HEMATOCRIT 42.2 % (37.0-47.0); HEMOGLOBIN 14.1 g/dl (12.5-16.0); LYMPH # 1.9 K/mm3 (1.2-3.4); LYMPH % 23.4 % (20.0-51.0); MEAN CELL VOLUME 87 fl (80.0-100.0); MEAN CORPUSCULAR HEMOGLOBIN 29 pg (27-31); MEAN CORPUSCULAR HGB CONC 33 g/dl (33.0-37.0); MEAN PLATELET VOLUME 10.4 fl (7.4-10.4); MONO # 0.6 K/mm3 (0.1-0.6); MONO % 6.9 % (1.7-9.3); PLATELET COUNT 283 K/mm3 (130-400); RED BLOOD COUNT 4.83 M/mm3 (4.10-5.30); REDCELL DISTRIBUTION WIDTH-CV 13.1 % (11.5-14.5)
[2022-01-12 20:05] LABS: ALBUMIN 3.9 gm/dL (3.5-5.0); BILIRUBIN,TOTAL 0.3 mg/dL (0.2-1.2); CALCIUM 9.5 mg/dL (8.4-10.2); CREATININE, serum 0.82 mg/dL (0.57-1.11); POTASSIUM 3.5 mmol/L (3.5-4.5); TOTAL PROTEIN 8.2 gm/dL (6.2-8.1)
[2022-01-12 20:05] LABS: COLLECTION METHOD CLEAN CATCH
[2022-01-12 20:18] LABS: MUCOUS Present (NOT PRESENT); SQUAMOUS EPITHELIAL 0-2 /hpf (0-10); URINE BACTERIA None Seen /hpf (NONE SEEN); URINE RBC 0-2 /hpf (0-2)
[2022-01-12 20:19] LABS: PH 7.5 (5.0-8.5); URINE APPEARANCE Clear (CLEAR/HAZY); URINE BLOOD Negative (NEGATIVE); URINE COLOR Yellow (YELLOW); URINE GLUCOSE Negative (NEGATIVE); URINE KETONE Negative (NEGATIVE); URINE NITRATE Negative (NEGATIVE); URINE PROTEIN(semi-quant) Negative (NEGATIVE); URINE UROBILINOGEN 0.2 E.U/dL (0.2-1.0)
[2022-01-12 21:22] VITALS: BP 136/97; PULSE 76
[2022-01-12 21:39] LABS: TRICYCLIC ANTIDEPRESS URINE NEGATIVE
== END 2022-01-12 21:22 | disposition home or self-care (01) ==
LOC: COL.ER 18:31
PROVIDERS: Nurse Practitioner
DX: F41.9 Anxiety disorder, unspecified (principal); R10.31 Right lower quadrant pain; Z28.310 Unvaccinated for COVID-19

== ENCOUNTER 2022-04-02 13:05 | Emergency (ER) | payer MEDICARE, MEDICAID ==
[~2022-04-02] VITALS: Ht 154.9 cm; Wt 88.2 kg
[2022-04-02 13:11] VITALS: TEMP 98.3
[2022-04-02 14:03] LABS: BASO % 0.4 % (0.0-2.0); EOS # 0.1 K/mm3 (0.0-0.7); EOS % 1.6 % (0.0-4.0); GRAN # 3.5 K/mm3 (1.4-6.5); GRAN % 63.3 % (42.2-75.2); HEMATOCRIT 40.4 % (37.0-47.0); HEMOGLOBIN 13.8 g/dl (12.5-16.0); LYMPH # 1.6 K/mm3 (1.2-3.4); LYMPH % 28.3 % (20.0-51.0); MEAN CELL VOLUME 86 fl (80.0-100.0); MEAN CORPUSCULAR HEMOGLOBIN 29 pg (27-31); MEAN CORPUSCULAR HGB CONC 34 g/dl (33.0-37.0); MONO # 0.3 K/mm3 (0.1-0.6); PLATELET COUNT 252 K/mm3 (130-400); RED BLOOD COUNT 4.72 M/mm3 (4.10-5.30); REDCELL DISTRIBUTION WIDTH-CV 12.9 % (11.5-14.5)
[2022-04-02 14:23] LABS: ALANINE AMINOTRANSFERASE 31 U/L (0-55); ALKALINE PHOSPHATASE 61 U/L (40-150); ANION GAP 9 mmol/L (7-16); AST,SGOT 20 U/L (5-34); BILIRUBIN,TOTAL 0.5 mg/dL (0.2-1.2); BLOOD UREA NITROGEN 6 mg/dL (7-19); CARBON DIOXIDE 23 mmol/L (22-29); CHLORIDE 108 mmol/L (98-107); CREATININE, serum 0.69 mg/dL (0.57-1.11); GLUCOSE 86 mg/dL (70-99); POTASSIUM 3.5 mmol/L (3.5-4.5); SODIUM 140 mmol/L (136-145); TOTAL PROTEIN 7.9 gm/dL (6.2-8.1)
[2022-04-02 14:34] LABS: TROPONIN-I < 0.010 ng/mL (0.00-0.033)
[2022-04-02 14:58] VITALS: BP 115/83; PULSE 55
== END 2022-04-02 15:05 | disposition home or self-care (01) ==
LOC: COL.ER 13:05
PROVIDERS: Emergency Medicine
DX: R07.9 Chest pain, unspecified (principal); Z28.310 Unvaccinated for COVID-19

== ENCOUNTER 2022-08-25 20:17 | Emergency (ER) | payer MEDICARE, MEDICAID ==
[~2022-08-25] VITALS: Ht 154.9 cm; Wt 89.5 kg
[2022-08-25 20:21] VITALS: TEMP 97
[2022-08-25 21:22] VITALS: BP 132/78; PULSE 60
== END 2022-08-25 21:22 | disposition home or self-care (01) ==
LOC: COL.ER 20:17
DX: S06.0XAA Concussion with loss of consciousness status unknown, initial encounter (principal); E66.9 Obesity, unspecified; Z87.820 Personal history of traumatic brain injury; Z28.310 Unvaccinated for COVID-19; W20.8XXA Other cause of strike by thrown, projected or falling object, initial encounter

== ENCOUNTER 2023-02-11 14:41 | Outpatient (CLI) | payer MEDICARE, MEDICAID ==
[~2023-02-11] VITALS: Ht 157.5 cm; Wt 86.8 kg
[~2023-02-11 14:41] MED LIST changes: +AMOXICILLIN 8751 TAB PO; +ASPERCREME1 EACH TP; +PRENATE W/QUAT PO
[2023-02-11 14:50] VITALS: BP 114/70; PULSE 78; TEMP 97.6
[2023-02-11 15:30] VITALS: BP 97/56; PULSE 68
--- NOTE | 2023-02-11 15:36 | NUR ---
1450 PATIENT HERE FROM HOME WITH COMPLAINTS THAT SHE HAD A BAD PAIN THAT WAS ALL ACROSS LOW ABDOMEN THIS AM. EFM ON FHT 130 BABY VERY ACTIVE. NO CONTRACTIONS NOTED OR PALPATED. VS WNL. ASSESSMENT COMPLETED. PATIENT EDMAR BURNING OR FREG WITH URINATION. SVE 0/THICK/HIGH. 1510 DR SHEIKH CALLED AND UPDATED ON ALL ABOVE INFORMATION. ORDERS TO DISMISS TO HOME.
--- NOTE | 2023-02-11 15:40 | NUR ---
8608 ALL DISCHARGE INSTRUCTIONS GIVEN TO PATIENT AND FRIEND. VERBAL UNDERSTANDING NOTED. PATIETN DENIES NEEDS. DISMISS TO HOME AT THIS TIME.
== END 2023-02-11 15:30 | disposition home or self-care (01) ==
LOC: LDRO 14:41
DX: O99.891 Other specified diseases and conditions complicating pregnancy (principal); R10.2 Pelvic and perineal pain; M54.9 Dorsalgia, unspecified; Z3A.23 23 weeks gestation of pregnancy

== ENCOUNTER 2023-03-09 15:16 | Emergency (ER) | payer MEDICARE, MEDICAID ==
[~2023-03-09] VITALS: Ht 154.9 cm; Wt 90.0 kg
[2023-03-09 15:23] VITALS: TEMP 97.6
[2023-03-09 16:20] LABS: BASO % 0.2 % (0.0-2.0); EOS # 0.1 K/mm3 (0.0-0.7); EOS % 1.2 % (0.0-4.0); GRAN # 7.3 K/mm3 (1.4-6.5); HEMOGLOBIN 11.5 g/dl (12.5-16.0); LYMPH # 1.3 K/mm3 (1.2-3.4); LYMPH % 13.8 % (20.0-51.0); MEAN CELL VOLUME 91 fl (80.0-100.0); MEAN CORPUSCULAR HEMOGLOBIN 30 pg (27-31); MEAN CORPUSCULAR HGB CONC 33 g/dl (33.0-37.0); MEAN PLATELET VOLUME 10.4 fl (7.4-10.4); MONO # 0.7 K/mm3 (0.1-0.6); MONO % 7.3 % (1.7-9.3); PLATELET COUNT 235 K/mm3 (130-400); RED BLOOD COUNT 3.85 M/mm3 (4.10-5.30); REDCELL DISTRIBUTION WIDTH-CV 14.6 % (11.5-14.5)
[2023-03-09 16:34] LABS: ALBUMIN 2.8 gm/dL (3.5-5.0); BILIRUBIN,TOTAL 0.3 mg/dL (0.2-1.2); CALCIUM 9.1 mg/dL (8.4-10.2); CREATININE, serum 0.7 mg/dL (0.57-1.11); POTASSIUM 3.7 mmol/L (3.5-4.5); TOTAL PROTEIN 6.8 gm/dL (6.2-8.1)
[2023-03-09 16:47] LABS: COLLECTION METHOD CLEAN CATCH
[2023-03-09 17:03] LABS: SQUAMOUS EPITHELIAL 0-2 /hpf (0-10); URINE APPEARANCE Clear (CLEAR/HAZY); URINE BLOOD Negative (NEGATIVE); URINE COLOR Yellow (YELLOW); URINE GLUCOSE Negative (NEGATIVE); URINE KETONE Negative (NEGATIVE); URINE NITRATE Negative (NEGATIVE); URINE PROTEIN(semi-quant) Negative (NEGATIVE); URINE RBC 0-2 /hpf (0-2); URINE UROBILINOGEN 0.2 E.U/dL (0.2-1.0)
[2023-03-09] MEDS ORDERED: PHENERGAN12.5 MG/SU RC (17:27)
[2023-03-09 18:09] VITALS: BP 112/69; PULSE 73
== END 2023-03-09 18:09 | disposition home or self-care (01) ==
LOC: COL.ER 15:16
PROVIDERS: Physician Assistant
DX: O99.612 Diseases of the digestive system complicating pregnancy, second trimester (principal); A08.4 Viral intestinal infection, unspecified; Z3A.27 27 weeks gestation of pregnancy; Z28.310 Unvaccinated for COVID-19
CPT/HCPCS: J7030

== ENCOUNTER 2023-05-28 12:26 | Emergency (ER) | payer MEDICARE, MEDICAID ==
[~2023-05-28] VITALS: Ht 154.9 cm; Wt 92.7 kg
[~2023-05-28 12:26] MED LIST changes: +CEPHALEXIN500 M1 PO; +MOTRIN 800800 MG/TAB PO; +PHENERGAN12.5 MG/SU RC
[2023-05-28 13:07] LABS: BASO % 0.5 % (0.0-2.0); EOS # 0.2 K/mm3 (0.0-0.7); EOS % 2.4 % (0.0-4.0); GRAN # 4.2 K/mm3 (1.4-6.5); GRAN % 65.9 % (42.2-75.2); HEMOGLOBIN 11.7 g/dl (12.5-16.0); LYMPH # 1.5 K/mm3 (1.2-3.4); LYMPH % 23.8 % (20.0-51.0); MEAN CELL VOLUME 84 fl (80.0-100.0); MEAN CORPUSCULAR HEMOGLOBIN 27 pg (27-31); MEAN CORPUSCULAR HGB CONC 32 g/dl (33.0-37.0); MONO # 0.5 K/mm3 (0.1-0.6); MONO % 7.1 % (1.7-9.3); PLATELET COUNT 360 K/mm3 (130-400); RED BLOOD COUNT 4.31 M/mm3 (4.10-5.30); REDCELL DISTRIBUTION WIDTH-CV 15.2 % (11.5-14.5)
[2023-05-28 13:08] LABS: HEMATOCRIT 36.3 % (37.0-47.0)
[2023-05-28 13:38] LABS: ALANINE AMINOTRANSFERASE 36 U/L (0-55); ALBUMIN 2.9 gm/dL (3.5-5.0); ALKALINE PHOSPHATASE 85 U/L (40-150); ANION GAP 13 mmol/L (7-16); AST,SGOT 32 U/L (5-34); BILIRUBIN,TOTAL 0.4 mg/dL (0.2-1.2); BLOOD UREA NITROGEN 12 mg/dL (7-19); CALCIUM 9.4 mg/dL (8.4-10.2); CARBON DIOXIDE 19 mmol/L (22-29); CHLORIDE 107 mmol/L (98-107); CREATININE, serum 0.64 mg/dL (0.57-1.11); GLUCOSE 75 mg/dL (70-99); POTASSIUM 3.7 mmol/L (3.5-4.5); SODIUM 139 mmol/L (136-145); TOTAL PROTEIN 7.3 gm/dL (6.2-8.1)
[2023-05-28 14:21] LABS: TROPONIN-I < 0.010 ng/mL (0.00-0.033)
[2023-05-28 15:00] VITALS: BP 132/84; PULSE 78; TEMP 98.3
== END 2023-05-28 15:01 | disposition home or self-care (01) ==
LOC: COL.ER 12:26
PROVIDERS: Personal Emergency Response Attendant
DX: R07.89 Other chest pain (principal); R79.89 Other specified abnormal findings of blood chemistry
CPT/HCPCS: Q9967

== ENCOUNTER 2023-06-01 20:25 | Observation (INO) | payer MEDICARE, MEDICAID ==
[~2023-06-01] VITALS: Ht 154.9 cm; Wt 91.6 kg
[2023-06-01 22:02] LABS: BASO # 0.1 K/mm3 (0.0-0.2); BASO % 0.4 % (0.0-2.0); EOS # 0.2 K/mm3 (0.0-0.7); EOS % 1.2 % (0.0-4.0); GRAN # 9.8 K/mm3 (1.4-6.5); GRAN % 78.1 % (42.2-75.2); HEMATOCRIT 38.8 % (37.0-47.0); LYMPH # 1.9 K/mm3 (1.2-3.4); LYMPH % 15.1 % (20.0-51.0); MEAN CELL VOLUME 86 fl (80.0-100.0); MEAN CORPUSCULAR HEMOGLOBIN 29 pg (27-31); MEAN CORPUSCULAR HGB CONC 34 g/dl (33.0-37.0); MEAN PLATELET VOLUME 9.5 fl (7.4-10.4); MONO # 0.6 K/mm3 (0.1-0.6); MONO % 4.8 % (1.7-9.3); PLATELET COUNT 453 K/mm3 (130-400); RED BLOOD COUNT 4.53 M/mm3 (4.10-5.30); REDCELL DISTRIBUTION WIDTH-CV 14.9 % (11.5-14.5)
[2023-06-01 22:21] LABS: ALANINE AMINOTRANSFERASE 35 U/L (0-55); ALBUMIN 3.3 gm/dL (3.5-5.0); ALKALINE PHOSPHATASE 94 U/L (40-150); ANION GAP 16 mmol/L (7-16); AST,SGOT 25 U/L (5-34); BILIRUBIN,TOTAL 0.1 mg/dL (0.2-1.2); BLOOD UREA NITROGEN 13 mg/dL (7-19); CALCIUM 9.6 mg/dL (8.4-10.2); CARBON DIOXIDE 19 mmol/L (22-29); CHLORIDE 106 mmol/L (98-107); CREATININE, serum 0.72 mg/dL (0.57-1.11); GLUCOSE 77 mg/dL (70-99); LIPASE 44 U/L (8-78); POTASSIUM 3.8 mmol/L (3.5-4.5); SODIUM 141 mmol/L (136-145); TOTAL PROTEIN 7.9 gm/dL (6.2-8.1)
[2023-06-01 22:29] LABS: TROPONIN-I < 0.010 ng/mL (0.00-0.033)
[2023-06-02] VITALS (7 sets, daily range): BP systolic 108–145; BP diastolic 61–86; PULSE 56–84; TEMP 97.9–98.3
--- NOTE | 2023-06-02 01:40 | NUR ---
PT ADMITTED TO ROOM 331. A&O X4. ORIENTED TO ROOM. DX:APPY. 2 WEEK POST . BABY AND HERE. PT . PT ONLY HURTS WHEN MOVE AROUND. NO NAUSEA.
--- NOTE | 2023-06-02 02:48 | NUR ---
PLACED COUCH CUSHIONS ON FLOOR TO LAY NEXT TO BABY. BABY LAYING ON CUSHION. ENC TO PLACE BABY IN CAR SEAT FOR SAFETY. ENC PT/ NOT TO LAY WITH BABY IN BED WITH THEM. THEY VERBALIZED UNDERSTANDING. AND STAFF NEEDS A CLEAR PATH TO IV STAND AND COMPUTER. PROVIDED PILL.OWS AND BLANKET FOR .
--- NOTE | 2023-06-02 08:31 | NUR ---
pt a&o3 asleep in bed, easily arousable. and son at bedside. vss. pt states that pain is tolerable this morning. fluids infusing into right ac at 125ml/hr. consent signed for surgery. no needs at this time. call light in reach.
--- NOTE | 2023-06-02 10:05 | NUR ---
Initial visit; Patient's son was hospitalized for health issues. Veneer Sheet Repairer offered prayer and God's blessings for Mom and baby who is doing well according to mom.
[2023-06-02] MEDS ORDERED: PROCARDIA XL 6060 MG PO (10:30)
--- NOTE | 2023-06-02 11:22 | NUR ---
pt off floor for surgery
[2023-06-02] MEDS ORDERED: NORCO 325 MG-51 TAB PO (12:05)
--- NOTE | 2023-06-02 13:30 | NUR ---
pt back in room from surgery, at bedside. vss. pt alert and oriented. denies pain. x3 lap sites are cdi. pt tolerating water. no needs at this time. call light in reach.
--- NOTE | 2023-06-02 14:37 | NUR ---
general distillery worker met with pt and her spouse, Brennan [phone] at bedside to discuss discharge planning. Pt lives with her family in [place] and obtains medications from [facility] with no difficulties. Pt is independent with ADLS and uses no DME. She does not have a DPOA-HC and declined one. Pt intends to return home at discharge. SW and UR CM Janice went over the WATT document due to pt being changed to observation status. Pt was verbalized understanding and signed. Janice placed in chart. Discharge Plan: Home
--- NOTE | 2023-06-02 15:18 | NUR ---
discharge instructions given to pt and , all questions answered. INT discontinued. pt escorted by pct to personal vehicle.
== END 2023-06-02 15:20 | disposition home or self-care (01) ==
LOC: COL.ER 20:25 → SURG 06-02 01:09
PROVIDERS: Emergency Medicine; ADMIT Surgery
DX: K35.80 Unspecified acute appendicitis (principal); K21.9 Gastro-esophageal reflux disease without esophagitis; Z79.899 Other long term (current) drug therapy; Z87.891 Personal history of nicotine dependence
CPT/HCPCS: G0378; J1100; J1885; J2405; J2543; J2704; J3010; J7120; Q9967

== ENCOUNTER 2023-06-23 11:22 | Emergency (ER) | payer MEDICARE, MEDICAID ==
[~2023-06-23] VITALS: Ht 154.9 cm; Wt 90.9 kg
[~2023-06-23 11:22] MED LIST changes: +PROCARDIA XL 6060 MG PO
[2023-06-23 11:31] VITALS: TEMP 97.9
[2023-06-23 12:01] LABS: BASO % 0.3 % (0.0-2.0); EOS # 0.2 K/mm3 (0.0-0.7); EOS % 2.9 % (0.0-4.0); GRAN # 3.6 K/mm3 (1.4-6.5); GRAN % 62.1 % (42.2-75.2); HEMATOCRIT 39.1 % (37.0-47.0); HEMOGLOBIN 12.7 g/dl (12.5-16.0); LYMPH # 1.5 K/mm3 (1.2-3.4); LYMPH % 25.8 % (20.0-51.0); MEAN CELL VOLUME 85 fl (80.0-100.0); MEAN CORPUSCULAR HEMOGLOBIN 28 pg (27-31); MEAN CORPUSCULAR HGB CONC 33 g/dl (33.0-37.0); MEAN PLATELET VOLUME 9.9 fl (7.4-10.4); MONO # 0.5 K/mm3 (0.1-0.6); MONO % 8.7 % (1.7-9.3); PLATELET COUNT 244 K/mm3 (130-400); RED BLOOD COUNT 4.61 M/mm3 (4.10-5.30); REDCELL DISTRIBUTION WIDTH-CV 15.1 % (11.5-14.5)
[2023-06-23 12:14] LABS: ALANINE AMINOTRANSFERASE 37 U/L (0-55); ALBUMIN 3.7 gm/dL (3.5-5.0); ALKALINE PHOSPHATASE 80 U/L (40-150); ANION GAP 11 mmol/L (7-16); AST,SGOT 24 U/L (5-34); BILIRUBIN,TOTAL 0.4 mg/dL (0.2-1.2); BLOOD UREA NITROGEN 10 mg/dL (7-19); CALCIUM 9.2 mg/dL (8.4-10.2); CARBON DIOXIDE 23 mmol/L (22-29); CHLORIDE 105 mmol/L (98-107); GLUCOSE 78 mg/dL (70-99); POTASSIUM 3.6 mmol/L (3.5-4.5); SODIUM 139 mmol/L (136-145); TOTAL PROTEIN 7.7 gm/dL (6.2-8.1)
[2023-06-23 12:21] LABS: COLLECTION METHOD CLEAN CATCH
[2023-06-23 12:50] LABS: TROPONIN-I < 0.010 ng/mL (0.00-0.033)
[2023-06-23 12:59] LABS: SQUAMOUS EPITHELIAL 0-2 /hpf (0-10); URINE APPEARANCE Clear (CLEAR/HAZY); URINE BLOOD Negative (NEGATIVE); URINE COLOR Yellow (YELLOW); URINE GLUCOSE Negative (NEGATIVE); URINE KETONE Negative (NEGATIVE); URINE NITRATE Negative (NEGATIVE); URINE PROTEIN(semi-quant) Negative (NEGATIVE); URINE RBC None Seen /hpf (0-2); URINE UROBILINOGEN 0.2 E.U/dL (0.2-1.0)
[2023-06-23 13:31] LABS: TRICYCLIC ANTIDEPRESS URINE NEGATIVE (NEGATIVE)
[2023-06-23 13:56] VITALS: BP 110/76; PULSE 54
== END 2023-06-23 13:56 | disposition home or self-care (01) ==
LOC: COL.ER 11:22
PROVIDERS: Physician Assistant
DX: O99.893 Other specified diseases and conditions complicating puerperium (principal); R07.89 Other chest pain

== ENCOUNTER 2024-03-08 10:24 | Emergency (ER) | payer MEDICAID ==
[~2024-03-08] VITALS: Ht 154.9 cm; Wt 92.9 kg
[~2024-03-08 10:24] MED LIST changes: +PROTONIX20 MG PO
[2024-03-08 10:35] VITALS: TEMP 98.4
[2024-03-08] MEDS ORDERED: PREDNISONE20 MG PO (12:43)
[2024-03-08] MEDS ORDERED: AMOXICILLIN 8751 TAB PO (12:44)
[2024-03-08 13:07] VITALS: BP 125/83; PULSE 87
== END 2024-03-08 13:07 | disposition home or self-care (01) ==
LOC: COL.ER 10:24
DX: J40 Bronchitis, not specified as acute or chronic (principal); J32.9 Chronic sinusitis, unspecified